=== PATIENT | female | born 1975 | race Hispanic/Latino ===

== ENCOUNTER → 2019-08-19 | Day surgery (SDC) | payer OTHER ==
[~2019-08-19] MED LIST: ACETAMINOPHEN PO; CEFTRIAXONE SOD 1 GM/NS 50 ML 50 ML IV ONE; CYSTEX TABLET1 EACH PO; DEXAMETHASONE SOD PHOS INJ 4 MG/ML VIAL ONE; FENTANYL CITRATE/PF 100MCG/2 ML INJ ONE; FISH OIL PO; IOPAMIDOL 300MG/ML 50ML INFUS..BTL IV ONE; LIDOCAINE HCL 2% LOCAL INJ 5 ML SDV VIAL INJ ONE; MULTI-VITAMIN1 EACH PO; ONDANSETRON HCL INJ 2MG/ML 2ML 2 MG/ML VIAL ONE; PAROXETINE HCL20 MG PO; PROBIOTIC PO; PROPOFOL IV EMULSION 10 MG/ML 20 ML VIAL ONE; SEVOFLURANE INHAL SOLN 250 ML PEN BTL ONE; TYLENOL WITH C1 EACH PO; VITAMIN C PO
--- OUTSIDE RECORDS SUMMARY | 2019-08-19 08:25 | XMS REPORT ---
Author [facility] Address Unknown Phone Unavailable Care Team Providers Care Preschool Disability Teacher Name Role Phone Unavailable Unavailable Payers Payer Name Policy Type Policy Number Effective Date Expiration Date Problems This patient has no known problems. Allergies, Adverse Reactions, Alerts Allergy Name Allergy Type Status Severity Reaction(s) Onset Date Inactive Date Treating Clinician Comments Sulfa (Sulfonamide Antibiotics) DA Active U 2018-04-10 00:00:00 amoxicillin DA Active U 2018-04-10 00:00:00 sulfamethoxazole DA Active U 2015-10-27 00:00:00 trimethoprim DA Active U 2015-10-27 00:00:00 Medications This patient has no known medications. Results Test Description Test Time Test Comments Text Results Atomic Results Result Comments SCR MAMM BILATERAL CAD DIGITAL 2018-09-10 12:00:39 - SCR MAMM BILATERAL CAD DIGITALBILATERAL DIGITAL SCREENING MAMMOGRAM WITH CAD: 09/10/2018CLINICAL: Asymptomatic. Current mammographic images were evaluated by either a Signpost M- Vu or a Sutus ImageChecker CAD (computer aided detection system). Comparison is made to exams dated 09/09/2017 mammogram, 08/01/2016 mammogram - [facility] and 02/06/2014 mammogram - [facility]. The tissue of both breasts is heterogeneously dense. This may lower the sensitivity of mammography. No suspicious mass, architectural distortion, malignant type calcification, or lymph node abnormality detected. Breast architecture is stable compared to prior exams.IMPRESSION: NEGATIVEThere is no mammographic evidence of malignancy. Resume annual screening mammography in one year. Milotn Calero M.D. ss/penrad:09/10/2018 12:00:39 Weatherization Field Technician: Charito ROMERO, [facility]-FWletter sent: BIRADS 1-2 Normal Mammogram BI-RADS: 1 Negative
[2019-08-19 09:50] VITALS: BP 114/60
--- NOTE | 2019-08-24 16:35 | Operative Report ---
DATE OF PROCEDURE: 08/19/2019 SURGEON: Vivek Mckee MD PREOPERATIVE DIAGNOSES: 1. Multiple chronic urinary tract infections. 2. Clinical signs and symptoms of interstitial cystitis without hematuria. POSTOPERATIVE DIAGNOSES: 1. Multiple chronic urinary tract infections. 2. Clinical signs and symptoms of interstitial cystitis without hematuria. PROCEDURES: 1. Cystourethroscopy with hydrodistention (entirely separate procedure for the diagnosis of clinical signs and symptoms of interstitial cystitis). 2. Cystourethroscopy with left ureteral catheterization and left retrograde pyelogram (separate procedure for multiple chronic urinary tract infections). 3. Cystourethroscopy with right ureteral catheterization and right retrograde pyelogram (separate procedure for multiple chronic urinary tract infections). 4. Supervision of fluoroscopy. 5. Interpretation of retrograde ureteropyelography. ANESTHESIA: General. ESTIMATED BLOOD LOSS: Minimal. COMPLICATIONS: None. INDICATIONS FOR PROCEDURE: Ms. Brown is a very pleasant 44-year-old female patient with a history of multiple chronic urinary tract infections and clinical symptoms of interstitial cystitis. She and I had a long discussion about alternatives, risks, and benefits including doing nothing, cystoscopy, IVP, retrograde pyelograms, renal ultrasound, hydrodistention. She voiced understanding of the options, alternatives, the risks, and the benefits and she would like to proceed with retrograde pyelograms, hydrodistention. PROCEDURE IN DETAIL: After informed consent was obtained, the patient was taken to the operative suite, placed supine on the operating table, underwent general anesthesia by the Anesthesia Service, placed on the dorsal lithotomy position, and sterilely prepped and draped for cystoscopy. A grade 2 cystocele noted. There was mild vaginal atrophy. Urethra was normal in appearance, which was catheterized with a 21-Yi cystoscope. Panendoscopy of the bladder revealed no tumors, no stones. There were seen squamous metaplasia of the trigone. Hydrodistention was performed with a capacity of 800 mL, no glomerulations, no Hunner's ulcers. Bilateral retrograde pyelogram performed, which were normal. The bladder was then drained. The patient was awakened from anesthesia and transported to the recovery room in excellent condition. Supervision of fluoroscopy, interpretation of retrograde pyelography: I was present for the entire procedure and supervised fluoroscopy. There was no radiologist present. Attention was turned to the left and right ureteral orifices, which were catheterized. Retrograde pyelogram performed revealing delicate ureter, delicate pelvocaliceal systems. No evidence of filling defects. No evidence of hydronephrosis. IMPRESSION: Normal retrograde pyelogram. MD JAVIER Deutsch/MODL /[id number]
== END | disposition home or self-care (01) ==
LOC: OR 07:47
PROVIDERS: ATTEND Urology
DX: N39.0 Urinary tract infection, site not specified (principal); N30.10 Interstitial cystitis (chronic) without hematuria; Z88.2 Allergy status to sulfonamides; Z88.8 Allergy status to other drugs, medicaments and biological substances; K76.0 Fatty (change of) liver, not elsewhere classified; R32 Unspecified urinary incontinence; I10 Essential (primary) hypertension; Z01.812 Encounter for preprocedural laboratory examination
CPT/HCPCS: 52260; 74420; 81025; C1758; J0696; J1100; J2001; J2405; J2704; J3010; Q9967